=== PATIENT | male | born 1970 | race Asian ===

== ENCOUNTER 2024-06-05 16:50 | Inpatient (IN) | payer OTHER ==
[~2024-06-05] VITALS: Ht 172.7 cm; Wt 84.3 kg
[2024-06-05 17:39] VITALS: PULSE 89; RESP 18; O2SAT 97
--- NOTE | 2024-06-05 17:47 | ED.PDOC ---
GI ASSESSMENT HPI Comments 53 y/o M, presents to the ED for CC abdominal pain. Patient states, he has been experiencing abdominal pain with associated symptoms of nausea and vomiting x1day. Patient currently complains, of 8/10 abdominal pain. Patient denies social history. Patient denies fever, chills, body-aches, or diarrhea. No other symptoms or modifying factors at this time. Time Seen by MD: 17:40 Reviewed Notes: Nurses Notes, Medications, Allergies Allergies: Coded Allergies: NO KNOWN ALLERGIES (Unverified , 06/05/24) Information Source: Patient, Friend Mode of Arrival: Ambulatory Timing: Days Duration: Since onset Prehospital treatment: None Quality: None Vomitus: Watery Severity: Mild Recent: None Recent Hx of: Diabetes Pain Location: Diffuse Modifying Factors: Nothing Associated sign and symptoms: Nausea, Vomiting Past Medical History PAST MEDICAL HISTORY: DM, HTN Surgical History: Denies all surgeries Family History Family History: Unknown Social History Smoker: Non-Smoker Alcohol: Denies ETOH Use Drugs: Denies Drug Use Lives In: Home Constitutional: denies: chills, diaphoresis, fatigue, fever, malaise, sweats, weakness, others EENTM: denies: blurred vision, double vision, ear bleeding, ear discharge, ear drainage, ear pain, ear ringing, eye pain, eye redness, hearing loss, mouth pa in, mouth swelling, nasal discharge, nose bleeding, nose congestion, nose pain, photophobia, tearing, throat pain, throat swelling, voice changes, others Respiratory: denies: cough, hemoptysis, orthopnea, SOB at rest, shortness of breath, SOB with excertion, stridor, wheezing, others Cardiovascular: denies: chest pain, dizzy spells, diaphoresis, Dyspnea on exertion, edema, irregular heart beat, left arm pain, lightheadedness, palpitations, PND, syncope, others Gastrointestinal: reports: abdominal pain, nausea, vomiting; denies: abdomen distended, blood streaked bowels, constipated, diarrhea, dysphagia, difficulty swallowing, hematemesis, melena, poor appetite, poor fluid intake, rectal bleeding, rectal pain, others Genitourinary: denies: burning, dysuria, flank pain, frequency, hematuria, incontinence, penile discharge, penile sore, pain, testicle pain, testicle swelling, urgency, others Neurological: denies: dizziness, fainting, headache, left sided numbness, left sided weakness, numbness, paresthesia, pre-existing deficit, right sided numbness, right sided weakness, seizure, speech problems, tingling, tremors, weakness, others Musculoskeletal: denies: back pain, gout, joint pain, joint swelling, muscle pain, muscle stiffness, neck pain, others Integumetry: denies: bruises, change in color, change in hair/nails, dryness, laceration, lesions, lumps, rash, wounds, others Allergic/Immunocompromised: denies: Difficulty Healing, Frequent Infections, Hives, Itching, others Hematologic/Lymphatic: denies: anemia, blood clots, easy bleeding, easy bruising, swollen glands, others Endocrine: denies: excessive hunger, excessive sweating, excessive thirst, excessive urination, flushing, intolerance to cold, intolerance to heat, unexplained weight gain, unexplained weight loss, others Psychiatric: denies: anxiety, bipolar disorder, depression, hopeless, panic disorder, schizophrenia, sleepless, suicidal, others All Other Systems: Reviewed and Negative Physical Exam General Appearance: Moderate Distress HEENT: Normal ENT Inspection, Pharynx Normal, TMs Normal Neck: Full Range of Motion, Non-Tender, Normal, Normal Inspection Respiratory: Chest Non-Tender, Lungs Clear, No Accessory Muscle Use, No Respiratory Distress, Normal Breath Sounds Cardiovascular: No Edema, No JVD, No Murmur, No Gallop, Normal Peripheral Pulses, Regular Rate/Rhythm Breast Exam: Deferred Gastrointestinal: Diffuse, No Organomegaly, No Pulsatile Mass, Normal Bowel Sounds, Soft, Tenderness Genitalia: Deferred Pelvic: Deferred Rectal: Deferred Extremities: No calf tenderness, Normal capillary refill, Normal inspection, Normal range of motion, Non-tender, No pedal edema Musculoskeletal : Apperance: Normal Neurologic: Alert, correspondence specialist II-XII nml as Tested, No Motor Deficits, Normal Affect, Normal Mood, No Sensory Deficits Cerebellar Function: Normal Reflexes: Normal Skin: Dry, Normal Color, Warm Lymphatic: No Adenopathy Was a procedure done? Was a procedure done?: No GI differential Dx Differential Diagnosis: Appendicitis, Gastritis/PUD, Gastroenteritis, Electrolyte Imbalance, Food Poisoning, , Bacterial, Viral X-Ray, Labs, Meds, VS Vital Signs Date Time Temp Pulse Resp B/P (MAP) Pulse Ox O2 Delivery O2 Flow Rate FiO2 06/05/24 17:39 89 18 97 Room Air* 0 21 06/05/24 17:39 98.6 89 18 145/91 (109) 97 98.6 06/05/24 17:39 98.6 89 18 145/91 (109) 97 Lab Test 06/05/24 17:53 06/05/24 17:35 Range/Units White Blood Count 16.8 H 4.4-10.8 10^3/uL Red Blood Count 5.23 4.5-5.90 10^6/uL Hemoglobin 16.0 13.5-17.5 g/dL Hematocrit 48.4 41.0-53.0 % Mean Corpuscular Volume 92.6 80.0-100.0 fL Mean Corpuscular Hemoglobin 30.6 28.0-32.0 pg Mean Corpuscular Hemoglobin Concent 33.1 32.0-36.0 g/dL Red Cell Distribution Width 12.7 11.8-14.3 % Platelet Count 199 140-450 10^3/uL Mean Platelet Volume 8.7 6.9-10.8 fL Neutrophils (%) (Auto) 92.0 H 37.0-80.0 % Lymphocytes (%) (Auto) 5.2 L 10.0-50.0 % Monocytes (%) (Auto) 2.6 0.0-12.0 % Eosinophils (%) (Auto) 0.0 0.0-7.0 % Basophils (%) (Auto) 0.2 0.0-2.0 % Neutrophils # (Auto) 15.5 H 1.6-8.6 10 ^3/uL Lymphocytes # (Auto) 0.9 0.4-5.4 10 ^3/uL Monocytes # (Auto) 0.4 0-1.3 10 ^3/uL Eosinophils # (Auto) 0 0-0.8 10 ^3/uL Basophils # (Auto) 0 0-0.2 10 ^3/uL Nucleated Red Blood Cells 0.1 % Prothrombin Time Pending Prothrombin Time INR Pending Activated Partial Thromboplast Time Pending Sodium Level Pending Potassium Level Pending Chloride Level Pending Carbon Dioxide Level Pending Anion Gap Pending Blood Urea Nitrogen Pending Creatinine Pending Glomerular Filtration Rate Calc Pending BUN/Creatinine Ratio Pending Serum Glucose Pending Calcium Level Pending Total Bilirubin Pending Aspartate Amino Transferase (AST) Pending Alanine Aminotransferase (ALT) Pending Alkaline Phosphatase Pending Total Protein Pending Albumin Pending Lipase Pending Urine Color Yellow Yellow Urine Clarity Clear Clear Urine pH 5.5 5.0-9.0 Urine Specific [place] 1.031 1.001-1.035 Urine Protein 1+ H Negative Urine Ketones 1+ H Negative Urine Blood Negative Negative /uL Urine Nitrite Negative Negative Urine Bilirubin Negative Negative Urine Urobilinogen Normal Negative mg/dL Urine Leukocyte Esterase Negative Negative /uL Urine RBC <1 0 - 3 /hpf Urine Microscopic WBC < 1 0-3 /HPF Urine Squamous Epithelial Cells None seen <5 /hpf Urine Bacteria None seen None Seen /hpf Urine Mucus Few None Seen Urine Glucose 3+ H Normal mg/dL IV Hep-Lock was established The patient was given a 1 L bolus of normal saline The urine test is negative The patient's CBC shows an elevated white blood cell count of 16.8 The rest of the CBC is within normal limits The patient had a CT scan done of the abdomen and pelvis which shows: 1. 10 mm appendix with calcified appendicoliths and periappendiceal stranding. Correlate with clinical setting. (series 2 images 54- 59 2. Clinically for possible appendicitis. 3. No calcified gallstones 4. No nephrolithiasis or hydronephrosis. 5. No CT findings of bowel obstruction. We are contacting the general surgeon for acute appendicitis The patient was started Zosyn IV piggyback The patient was being typed and screened We did discuss the findings with the patient and he is in agreement with the management The patient was being admitted at this time Images Reviewed?: Images reviewed and evaluated by me Time of 1ST Reevaluation: 18:20 Reevaluation 1ST: Unchanged Patient Education/Counseling: Diagnosis, Treatment, Prognosis Family Education/Counseling: No Family Present Additional Information - I reviewed the following notes from patient's past medical encounters: NONE - The following tests were ordered, and results were reviewed by me: CBC, CMP, LIPASE, UA, CT ABD PEL - Additional information was gathered from interviewing the following independent Historian: FAMILY - I reviewed and agreed with the following test results read by other provider: CT ABD PEL - I discussed treatments and results with medical personnel and: FAMILY Departure 1 Departure Time of Disposition: 18:52 Impression: Primary Impression: Acute abdominal pain Additional Impression: Acute appendicitis Qualified Codes: K35.30 - Acute appendicitis with localized peritonitis, without perforation or gangrene Disposition: ADMITTED INPATIENT Admit to: Med Surg Condition: Fair Critical Care Note Critical Care Time?: No Stability Stability form required: No Heart Score Heart Score: Heart Score Response (Comments) Value History N/A 0 EKG N/A 0 Age N/A 0 Risk Factors N/A 0 Troponin N/A 0 Total 0 I personally scribed for LISA HITCHCOCK MD ([email or web address]) on 06/05/24 at 17:47. Electronically submitted by Marisela Ruiz ([email or web address]). I personally scribed for LISA HITCHCOCK MD ([email or web address]) on 06/05/24 at 17:54. Electronically submitted by Marisela Ruiz ([email or web address]). LISA HITCHCOCK MD Jun 05, 2024 17:47
[2024-06-05 18:21] LABS: Urine Bacteria None Seen /hpf (None Seen)
[2024-06-05 18:33] LABS: Basophils # (auto) 0 10 ^3/uL (0-0.2); Basophils % (auto) 0.2 % (0.0-2.0); Eosinophils # (auto) 0 10 ^3/uL (0-0.8); Hematocrit 48.4 % (41.0-53.0); Lymphocytes # (auto) 0.9 10 ^3/uL (0.4-5.4); Lymphocytes % (auto) 5.2 % (10.0-50.0); Mean Corpuscular Hemoglobin 30.6 pg (28.0-32.0); Mean Corpuscular Hgb Conc. 33.1 g/dL (32.0-36.0); Mean Corpuscular Volume 92.6 fL (80.0-100.0); Monocytes # (auto) 0.4 10 ^3/uL (0-1.3); Monocytes % (auto) 2.6 % (0.0-12.0); Neutrophils # (auto) 15.5 10 ^3/uL (1.6-8.6); Nucleated Red Blood Cells % 0.1 %; Platelet Count (auto) 199 10^3/uL (140-450); Red Blood Cells 5.23 10^6/uL (4.5-5.90); Red Cell Distribution Width 12.7 % (11.8-14.3); White Blood Cell 16.8 10^3/uL (4.4-10.8)
[2024-06-05 18:35] LABS: Urine Blood Negative /uL (Negative); Urine Clarity Clear (Clear); Urine Color Yellow (Yellow); Urine Mucus FEW (None Seen); Urine Protein, UAD 1+ (Negative); Urine Specific Gravity 1.031 (1.001-1.035); Urine Squamous Epithelial Cell None Seen /hpf (<5); Urine Urobilinogen Normal (Negative); Urine WBC < 1 /HPF (0-3); Urine pH 5.5 (5.0-9.0)
--- NOTE | 2024-06-05 18:39 | DVH ---
Exam: CT CT AB PEL WO CON-NO ORAL OR IV History: pain Comparison Study: None available at time of dictation. TECHNIQUE: Multidetector CT of the abdomen was performed from lung bases to pubic symphysis. Imaging was performed without IV contrast. Axial, coronal and sagittal multiplanar reformats were obtained fr om the axial data set by the technologist. Radiation Dose Information: CT Dose: CTDI volume is 11.04 mGy. Dose-length product is 606.1 mGy*cm FINDINGS: Evaluation of solid organs is limited due to lack of intravenous contrast use. Findings: Lung Bases: No acute or significant lung base finding. Normal heart size. No pleural or pericardial effusion. Liver: The liver is normal in size. No focal lesions. Hepatic steatosis Gallbladder and Biliary Tree: Unremarkable Spleen: Unremarkable Pancreas: The pancreas is grossly normal in appearance. Adrenal Glands: Unremarkable Kidneys: Kidneys are grossly normal without calculi or hydronephrosis. Bladder: Grossly unremarkable for degree of distention. Bowel: The stomach is grossly normal in appearance. Small bowel and colon are normal in caliber and d istribution. The appendix is prominent measuring periappendiceal stranding and a calcified appendico lith. Correlate clinically for possible appendicitis. Ascites: Absent Lymphadenopathy: No mesenteric, retroperitoneal or periportal lymphadenopathy. Abdominal Wall and Mesentery: Unremarkable. Vasculature: The visualized abdominal aorta is normal in size and caliber. Evaluation of abdominal a nd pelvic vessels is limited due to lack of intravenous contrast. Pelvic Organs: Unremarkable Musculoskeletal: No aggressive focal bony lesions, acute fractures or dislocation. Soft tissues: Unremarkable IMPRESSION: 1. 10 mm appendix with calcified appendicoliths and periappendiceal stranding. Correlate with clinic al setting. (series 2 images 54- 59 2. Clinically for possible appendicitis. 3. No calcified gallstones 4. No nephrolithiasis or hydronephrosis. 5. No CT findings of bowel obstruction. CRITICAL FINDINGS Critical Result: POSSIBLE APPENDICITIS Findings discussed with LISA Mendenhall at 06/05/2024 06:29 PM, and acknowledged receipt and underst anding of the findings. HS:[place] .. Radiation optimization: All CT scans at this facility use at least one of these dose optimization raymond hniques: automated exposure control mA and/or kV adjustment per patient size (includes targeted exam s where dose is matched to clinical indication) or iterative reconstruction.
[2024-06-05 18:52] LABS: Alanine Aminotransferase 33 U/L (7-40); Alkaline Phosphatase 67 U/L (46-116); Anion Gap 8 (5-15); Aspartate Aminotransferase 22 U/L (13-40); BUN/Creatinine Ratio 18.4 (10.0-20.0); Blood Urea Nitrogen 14 mg/dL (9-23); Calcium 9.9 mg/dL (8.7-10.4); Carbon Dioxide 26 mmol/L (20-31); Chloride 103 mmol/L (98-107); Lipase 51 U/L (12-53); Potassium 3.8 mmol/L (3.5-5.1); Sodium 137 mmol/L (136-145)
[2024-06-05 18:53] LABS: Albumin 4.9 g/dL (3.2-4.8); Bilirubin, Total 0.6 mg/dL (0.2-1.0); Glucose 158 mg/dL (74-106); Total Protein 7.7 g/dL (5.7-8.2)
[2024-06-05 18:58] LABS: INR 1.04 (0.9-1.15); Partial Thromboplastin Time 27.3 SEC (24.5-34.5)
[2024-06-05] MEDS: SODIUM CHLORIDE 0.9% 1,000 ML IVB ONE (19:00)
[2024-06-05] MEDS ORDERED: ONDANSETRON HCL 4 MG/2 ML VIAL IV PRN (19:45)
--- NOTE | 2024-06-05 19:59 | DVHINCON2 ---
Consultation - Surgical Date Seen: Jun 05, 2024 Referring Physician Referring Physician monica Reason for Consultation Abdominal pain History of Present Illness History of Present Illness 53 y/o M, presents to the ED for CC abdominal pain. Patient states, he has been experiencing abdominal pain with associated symptoms of nausea and vomiting x1day. Patient currently complains, of 8/10 abdominal pain. Patient denies social history. Patient denies fever, chills, body-aches, or diarrhea. No other symptoms or modifying factors at this time. Past Medical/Surgical History Past Medical/Surgical History Hypertension and diabetes Family and Social History Family and Social History Nonsmoker nondrinker Allergies and medications Allergies: Coded Allergies: NO KNOWN ALLERGIES (Unverified , 06/05/24) Review of systems Review of Systems: HEENT:Normal, CVS:Normal Examination Vital signs Vital Signs Date Time Temp Pulse Resp B/P (MAP) Pulse Ox O2 Delivery O2 Flow Rate FiO2 06/05/24 17:39 89 18 97 Room Air* 0 21 06/05/24 17:39 98.6 145/91 (109) 98.6 Laboratory Labs Test 06/05/24 17:53 06/05/24 17:35 Range/Units White Blood Count 16.8 H 4.4-10.8 10^3/uL Red Blood Count 5.23 4.5-5.90 10^6/uL Hemoglobin 16.0 13.5-17.5 g/dL Hematocrit 48.4 41.0-53.0 % Mean Corpuscular Volume 92.6 80.0-100.0 fL Mean Corpuscular Hemoglobin 30.6 28.0-32.0 pg Mean Corpuscular Hemoglobin Concent 33.1 32.0-36.0 g/dL Red Cell Distribution Width 12.7 11.8-14.3 % Platelet Count 199 140-450 10^3/uL Mean Platelet Volume 8.7 6.9-10.8 fL Neutrophils (%) (Auto) 92.0 H 37.0-80.0 % Lymphocytes (%) (Auto) 5.2 L 10.0-50.0 % Monocytes (%) (Auto) 2.6 0.0-12.0 % Eosinophils (%) (Auto) 0.0 0.0-7.0 % Basophils (%) (Auto) 0.2 0.0-2.0 % Neutrophils # (Auto) 15.5 H 1.6-8.6 10 ^3/uL Lymphocytes # (Auto) 0.9 0.4-5.4 10 ^3/uL Monocytes # (Auto) 0.4 0-1.3 10 ^3/uL Eosinophils # (Auto) 0 0-0.8 10 ^3/uL Basophils # (Auto) 0 0-0.2 10 ^3/uL Nucleated Red Blood Cells 0.1 % Prothrombin Time 11.0 9.3-11.8 sec Prothrombin Time INR 1.04 0.9-1.15 Activated Partial Thromboplast Time 27.3 24.5-34.5 SEC Sodium Level 137 136-145 mmol/L Potassium Level 3.8 3.5-5.1 mmol/L Chloride Level 103 98-107 mmol/L Carbon Dioxide Level 26 20-31 mmol/L Anion Gap 8 5-15 Blood Urea Nitrogen 14 9-23 mg/dL Creatinine 0.76 0.700-1.30 mg/dL Glomerular Filtration Rate Calc 108 >90 mL/min BUN/Creatinine Ratio 18.4 10.0-20.0 Serum Glucose 158 H 74-106 mg/dL Calcium Level 9.9 8.7-10.4 mg/dL Total Bilirubin 0.6 0.2-1.0 mg/dL Aspartate Amino Transferase (AST) 22 13-40 U/L Alanine Aminotransferase (ALT) 33 7-40 U/L Alkaline Phosphatase 67 46-116 U/L Total Protein 7.7 5.7-8.2 g/dL Albumin 4.9 H 3.2-4.8 g/dL Lipase 51 12-53 U/L Urine Color Yellow Yellow Urine Clarity Clear Clear Urine pH 5.5 5.0-9.0 Urine Specific [place] 1.031 1.001-1.035 Urine Protein 1+ H Negative Urine Ketones 1+ H Negative Urine Blood Negative Negative /uL Urine Nitrite Negative Negative Urine Bilirubin Negative Negative Urine Urobilinogen Normal Negative mg/dL Urine Leukocyte Esterase Negative Negative /uL Urine RBC <1 0 - 3 /hpf Urine Microscopic WBC < 1 0-3 /HPF Urine Squamous Epithelial Cells None seen <5 /hpf Urine Bacteria None seen None Seen /hpf Urine Mucus Few None Seen Urine Glucose 3+ H Normal mg/dL Exam: CT CT AB PEL WO CON-NO ORAL OR IV History: pain Comparison Study: None available at time of dictation. TECHNIQUE: Multidetector CT of the abdomen was performed from lung bases to pubic symphysis. Imaging was performed without IV contrast. Axial, coronal and sagittal multiplanar reformats were obtained from the axial data set by the technologist. Radiation Dose Information: CT Dose: CTDI volume is 11.04 mGy. Dose-length product is 606.1 mGy*cm FINDINGS: Evaluation of solid organs is limited due to lack of intravenous contrast use. Findings: Lung Bases: No acute or significant lung base finding. Normal heart size. No pleural or pericardial effusion. Liver: The liver is normal in size. No focal lesions. Hepatic steatosis Gallbladder and Biliary Tree: Unremarkable Spleen: Unremarkable Pancreas: The pancreas is grossly normal in appearance. Adrenal Glands: Unremarkable Kidneys: Kidneys are grossly normal without calculi or hydronephrosis. Bladder: Grossly unremarkable for degree of distention. Bowel: The stomach is grossly normal in appearance. Small bowel and colon are normal in caliber and distribution. The appendix is prominent measuring periappendiceal stranding and a calcified appendicolith. Correlate clinically for possible appendicitis. Ascites: Absent Lymphadenopathy: No mesenteric, retroperitoneal or periportal lymphadenopathy. Abdominal Wall and Mesentery: Unremarkable. Vasculature: The visualized abdominal aorta is normal in size and caliber. Evaluation of abdominal and pelvic vessels is limited due to lack of intravenous contrast. Pelvic Organs: Unremarkable Musculoskeletal: No aggressive focal bony lesions, acute fractures or dislocation. Soft tissues: Unremarkable IMPRESSION: 1. 10 mm appendix with calcified appendicoliths and periappendiceal stranding. Correlate with clinical setting. (series 2 images 54- 59 2. Clinically for possible appendicitis. 3. No calcified gallstones 4. No nephrolithiasis or hydronephrosis. 5. No CT findings of bowel obstruction. CRITICAL FINDINGS Critical Result: POSSIBLE APPENDICITIS Examination: ABDOMEN:Abnormal (Abdominal pain tenderness generalized with increased intensity no rebound guarding CVA) Problem List/Assessment/Plan Problems: (1) Acute appendicitis (2) Acute abdominal pain Assessment and Plan 53-year-old male with appendicitis We will admit IV hydration, IV antibiotics, NPO, laparoscopic possible open appendectomy in the morning. Case discussed with Dr. Patrick Plan discussed with Plan discussed with: Patient, Other Visit Coding Surgery Date of Service if different f: Jun 05, 2024 Billing Provider: DAYANARA VERNON Jr., MD Surgery Visit Codes: 34289 - INP CONSULT <80 MIN DAYANARA VERNON Jr., MD Jun 05, 2024 19:59
--- NOTE | 2024-06-05 20:20 | DVH ---
CHEST RADIOGRAPH Indication: preop, pain Technique: Single frontal view of the chest was obtained Comparison: None FINDINGS: Lines and Tubes: None Lungs: No focal consolidation. Pleura: No effusion. No pneumothorax. Cardiomediastinal contours: Unremarkable Bones: No acute osseous abnormality. IMPRESSION: No acute cardiopulmonary disease.
[2024-06-05] MEDS: MORPHINE SULFATE 4 MG/ML SYR/VIAL IV ONE (21:48)
[2024-06-05] MEDS: ONDANSETRON HCL 4 MG/2 ML VIAL IV ONE (21:49)
[2024-06-05] MEDS: PIPERACILLIN-TAZOB 3.375GM 100 ML IV ONE (21:59)
[2024-06-05] MEDS: SODIUM CHLORIDE 0.9% 1,000 ML IV ONE (22:15)
[2024-06-05 23:35] VITALS: BP 142/81; PULSE 70; RESP 20; TEMP 98.3; O2SAT 95
[2024-06-06] VITALS (9 sets, daily range): BP systolic 112–142; BP diastolic 60–83; PULSE 70–109; RESP 10–20; TEMP 98.1–101.7; O2SAT 91–100
[2024-06-06] MEDS: PIPERACILLIN-TAZOB 3.375GM 100 ML IV SCH ×2 (01:21→21:29)
--- NOTE | 2024-06-06 03:58 | DVHHP2 ---
History of Present Illness Reason for Visit: Abdominal pain History of Present Illness 53-year-old male presents for evaluation of abdominal pain. Patient endorses a one day history of sharp abdominal pain associated nausea and vomiting. Patient also reports intermittent chills. Patient currently endorses a 6/10 pain level. No cardiac or respiratory complaints. Past Medical History Hypertension diabetes mellitus Past Surgical History Denies Family History Noncontributory Smoke: No ALCOHOL: none Drugs: None Lives: with Family Review of Systems Review of Systems Review of systems are currently negative otherwise addressed in HPI. Allergies: Coded Allergies: NO KNOWN ALLERGIES (Unverified , 06/05/24) Medications Current Medications Medications Dose Ordered Sig/Salvador Route Start Time Stop Time Status Last Admin Dose Admin Piperacillin Sod/ Tazobactam Sod 100 ml @ 25 mls/hr Q6HR IV 06/06/24 00:00 06/06/24 01:21 25 MLS/HR Ondansetron HCl 4 mg Q4HP PRN IV 06/05/24 19:45 Morphine Sulfate 2 mg Q4HPRN PRN IV 06/05/24 19:45 Exam Vital Signs Vital Signs Date Time Temp Pulse Resp B/P (MAP) Pulse Ox O2 Delivery O2 Flow Rate FiO2 06/06/24 00:00 98.3 70 20 142/81 (101) 95 98.3 06/06/24 00:00 Room Air* 0 21 Exam Gen: 53-year-old male in mild distress Skin: Warm, dry, normal color and texture, no rash. HEENT: Normocephalic atraumatic, mucous membranes moist and pink. Neck: Cervical and supraclavicular nodes normal without enlargement, trachea is midline, thyroid gland is normal without masses. Pulmonary: Clear to auscultation and percussion bilaterally. Cardiac: Regular rate and rhythm. No murmur Abdomen: Soft, mid abdominal tenderness radiating to right lower quadrant, nondistended, bowel sounds present all 4 quadrants, no guarding, no rigidity, no organomegaly. Extremities: No cyanosis, clubbing, no edema Neuro: Cranial nerves II through XII grossly intact, normal affect and speech, no focal motor deficits. Labs/Xrays ORDERING PHYSICIAN: RODRÍGUEZ RODRÍGUEZ PROCEDURE(s): CXR1 - CHEST XRAY 1 VIEW REASON: preop ORDER NUMBER(s): [id number], ACCESSION NUMBER(s): [id number] CHEST RADIOGRAPH Indication: preop, pain Technique: Single frontal view of the chest was obtained Comparison: None FINDINGS: Lines and Tubes: None Lungs: No focal consolidation. Pleura: No effusion. No pneumothorax. Cardiomediastinal contours: Unremarkable Bones: No acute osseous abnormality. IMPRESSION: No acute cardiopulmonary disease. RING PHYSICIAN: LISA HITCHCOCK MD PROCEDURE(s): ABPL - CT AB PEL WO CON-NO ORAL OR IV REASON: pain ORDER NUMBER(s): [id number], ACCESSION NUMBER(s): [id number] Exam: CT CT AB PEL WO CON-NO ORAL OR IV History: pain Comparison Study: None available at time of dictation. TECHNIQUE: Multidetector CT of the abdomen was performed from lung bases to pubic symphysis. Imaging was performed without IV contrast. Axial, coronal and sagittal multiplanar reformats were obtained from the axial data set by the technologist. Radiation Dose Information: CT Dose: CTDI volume is 11.04 mGy. Dose-length product is 606.1 mGy*cm FINDINGS: Evaluation of solid organs is limited due to lack of intravenous contrast use. Findings: Lung Bases: No acute or significant lung base finding. Normal heart size. No pleural or pericardial effusion. Liver: The liver is normal in size. No focal lesions. Hepatic steatosis Gallbladder and Biliary Tree: Unremarkable Spleen: Unremarkable Pancreas: The pancreas is grossly normal in appearance. Adrenal Glands: Unremarkable Kidneys: Kidneys are grossly normal without calculi or hydronephrosis. Bladder: Grossly unremarkable for degree of distention. Bowel: The stomach is grossly normal in appearance. Small bowel and colon are normal in caliber and distribution. The appendix is prominent measuring periappendiceal stranding and a calcified appendicolith. Correlate clinically for possible appendicitis. Ascites: Absent Lymphadenopathy: No mesenteric, retroperitoneal or periportal lymphadenopathy. Abdominal Wall and Mesentery: Unremarkable. Vasculature: The visualized abdominal aorta is normal in size and caliber. Evaluation of abdominal and pelvic vessels is limited due to lack of intravenous contrast. Pelvic Organs: Unremarkable Musculoskeletal: No aggressive focal bony lesions, acute fractures or dislocation. Soft tissues: Unremarkable IMPRESSION: 1. 10 mm appendix with calcified appendicoliths and periappendiceal stranding. Correlate with clinical setting. (series 2 images 54- 59 2. Clinically for possible appendicitis. 3. No calcified gallstones 4. No nephrolithiasis or hydronephrosis. 5. No CT findings of bowel obstruction. CRITICAL FINDINGS Critical Result: POSSIBLE APPENDICITIS Findings discussed with LISA Mendenhall at 06/05/2024 06:29 PM, and acknowledged receipt and understanding of the findings. HS:Y .. Radiation optimization: All CT scans at this facility use at least one of these dose optimization techniques: automated exposure control mA and/or kV adjustment per patient size (includes targeted exams where dose is matched to clinical indication) or iterative reconstruction. Labs Test 06/05/24 17:53 06/05/24 17:35 Range/Units White Blood Count 16.8 H 4.4-10.8 10^3/uL Red Blood Count 5.23 4.5-5.90 10^6/uL Hemoglobin 16.0 13.5-17.5 g/dL Hematocrit 48.4 41.0-53.0 % Mean Corpuscular Volume 92.6 80.0-100.0 fL Mean Corpuscular Hemoglobin 30.6 28.0-32.0 pg Mean Corpuscular Hemoglobin Concent 33.1 32.0-36.0 g/dL Red Cell Distribution Width 12.7 11.8-14.3 % Platelet Count 199 140-450 10^3/uL Mean Platelet Volume 8.7 6.9-10.8 fL Neutrophils (%) (Auto) 92.0 H 37.0-80.0 % Lymphocytes (%) (Auto) 5.2 L 10.0-50.0 % Monocytes (%) (Auto) 2.6 0.0-12.0 % Eosinophils (%) (Auto) 0.0 0.0-7.0 % Basophils (%) (Auto) 0.2 0.0-2.0 % Neutrophils # (Auto) 15.5 H 1.6-8.6 10 ^3/uL Lymphocytes # (Auto) 0.9 0.4-5.4 10 ^3/uL Monocytes # (Auto) 0.4 0-1.3 10 ^3/uL Eosinophils # (Auto) 0 0-0.8 10 ^3/uL Basophils # (Auto) 0 0-0.2 10 ^3/uL Nucleated Red Blood Cells 0.1 % Prothrombin Time 11.0 9.3-11.8 sec Prothrombin Time INR 1.04 0.9-1.15 Activated Partial Thromboplast Time 27.3 24.5-34.5 SEC Sodium Level 137 136-145 mmol/L Potassium Level 3.8 3.5-5.1 mmol/L Chloride Level 103 98-107 mmol/L Carbon Dioxide Level 26 20-31 mmol/L Anion Gap 8 5-15 Blood Urea Nitrogen 14 9-23 mg/dL Creatinine 0.76 0.700-1.30 mg/dL Glomerular Filtration Rate Calc 108 >90 mL/min BUN/Creatinine Ratio 18.4 10.0-20.0 Serum Glucose 158 H 74-106 mg/dL Calcium Level 9.9 8.7-10.4 mg/dL Total Bilirubin 0.6 0.2-1.0 mg/dL Aspartate Amino Transferase (AST) 22 13-40 U/L Alanine Aminotransferase (ALT) 33 7-40 U/L Alkaline Phosphatase 67 46-116 U/L Total Protein 7.7 5.7-8.2 g/dL Albumin 4.9 H 3.2-4.8 g/dL Lipase 51 12-53 U/L Urine Color Yellow Yellow Urine Clarity Clear Clear Urine pH 5.5 5.0-9.0 Urine Specific [place] 1.031 1.001-1.035 Urine Protein 1+ H Negative Urine Ketones 1+ H Negative Urine Blood Negative Negative /uL Urine Nitrite Negative Negative Urine Bilirubin Negative Negative Urine Urobilinogen Normal Negative mg/dL Urine Leukocyte Esterase Negative Negative /uL Urine RBC <1 0 - 3 /hpf Urine Microscopic WBC < 1 0-3 /HPF Urine Squamous Epithelial Cells None seen <5 /hpf Urine Bacteria None seen None Seen /hpf Urine Mucus Few None Seen Urine Glucose 3+ H Normal mg/dL Assessment/Plan Assessment/Plan Assessment Acute abdominal pain Acute appendicitis Leukocytosis Plan Admit the patient to [facility] to the hospitalist Surgical consultation Zosyn NPO Maintenance IV fluids Pain management Continue treatment per orders. Plan discussed with: Patient My Orders Orders - RODRÍGUEZ RODRÍGUEZCNOmar Procedure Category Date Status Time Ekg On Admit ABNER 06/05/24 In Process 19:45 Piperacillin-Tazob PHA 06/06/24 In Process 3.375gm (Zosyn 3.375g 00:00 Sodium Chloride 0.9% PHA 06/05/24 In Process 19:45 Admit ADMIT 06/05/24 Transmitted 19:45 Ondansetron Hcl PHA 06/05/24 In Process (Zofran) 19:45 Complete Blood Count LAB 06/06/24 Logged 04:00 Comprehensive LAB 06/06/24 Logged Metabolic Panel 04:00 Condition: Stable ABNER 06/05/24 In Process 19:45 Bedrest With Bathroom ABNER 06/05/24 In Process Privileg 19:45 Morphine Sulfate PHA 06/05/24 In Process Injection 19:45 Chest Xray 1 View XY 06/05/24 Resulted 19:50 Date of Service: Jun 05, 2024 Billing Provider: RODRÍGUEZ RODRÍGUEZ Common Visit Codes: [id number] INP/OBS CARE (HIGH) RODRÍGUEZ RODRÍGUEZ Jun 06, 2024 03:58
[2024-06-06 08:29] LABS: Basophils # (auto) 0 10 ^3/uL (0-0.2); Basophils % (auto) 0.1 % (0.0-2.0); Eosinophils # (auto) 0 10 ^3/uL (0-0.8); Hematocrit 45.5 % (41.0-53.0); Hemoglobin 14.9 g/dL (13.5-17.5); Lymphocytes # (auto) 0.9 10 ^3/uL (0.4-5.4); Lymphocytes % (auto) 5.5 % (10.0-50.0); Mean Corpuscular Hemoglobin 30.1 pg (28.0-32.0); Mean Corpuscular Hgb Conc. 32.8 g/dL (32.0-36.0); Monocytes # (auto) 1.1 10 ^3/uL (0-1.3); Monocytes % (auto) 6.4 % (0.0-12.0); Neutrophils # (auto) 14.9 10 ^3/uL (1.6-8.6); Platelet Count (auto) 181 10^3/uL (140-450); Red Blood Cells 4.94 10^6/uL (4.5-5.90); Red Cell Distribution Width 12.9 % (11.8-14.3); White Blood Cell 16.9 10^3/uL (4.4-10.8)
[2024-06-06 09:19] LABS: Carbon Dioxide 26 mmol/L (20-31)
[2024-06-06 09:20] LABS: Calcium 9.1 mg/dL (8.7-10.4)
[2024-06-06 09:23] LABS: Anion Gap 9 (5-15); Chloride 105 mmol/L (98-107); Potassium 3.3 mmol/L (3.5-5.1); Sodium 140 mmol/L (136-145)
[2024-06-06 09:24] LABS: Alkaline Phosphatase 57 U/L (46-116)
[2024-06-06 09:25] LABS: Alanine Aminotransferase 23 U/L (7-40); BUN/Creatinine Ratio 13.5 (10.0-20.0); Blood Urea Nitrogen 12 mg/dL (9-23)
[2024-06-06 09:27] LABS: Albumin 4.2 g/dL (3.2-4.8); Aspartate Aminotransferase 17 U/L (13-40); Total Protein 6.6 g/dL (5.7-8.2)
[2024-06-06 09:29] LABS: Bilirubin, Total 1.3 mg/dL (0.2-1.0); Glucose 146 mg/dL (74-106)
[2024-06-06] MEDS ORDERED: HYDROmorphone HCL 2 MG/ML VL/or syr IV PRN ×2 (10:45)
[2024-06-06] MEDS ORDERED: MORPHINE SULFATE INJ 2 MG/ml SYRG IV PRN (10:45)
[2024-06-06] MEDS: KETOROLAC TROMETH 30 MG/ML 1ML VIAL IV ONE (10:45)
[2024-06-06] MEDS: METOCLOPRAMIDE HCL 5MG/ml INJ 2ml VIAL IV ONE (10:45)
[2024-06-06] MEDS: ACCU-CHEK COMFORT CURVE STRIP VI ONE (10:45)
[2024-06-06] MEDS ORDERED: MEPERIDINE HCL (25 MG/ML) 1ML VIAL ONE (10:56)
[2024-06-06] MEDS ORDERED: fentaNYL CITRATE 100 MCG/2 ML VL ONE (10:56)
[2024-06-06] MEDS ORDERED: KETAMINE 50mg/ML 1ml syringe ONE (10:56)
[2024-06-06] MEDS ORDERED: LIDOCAINE 1% INJ PF 5ML AMP ONE (10:57)
[2024-06-06] MEDS ORDERED: GLYCOPYRROLATE 0.2 MG/ML 1ML VIAL ONE (10:57)
[2024-06-06] MEDS ORDERED: MIDAZOLAM HCL 2MG/2ML 2ml VIAL (1mg/ml) ONE (10:57)
[2024-06-06] MEDS ORDERED: NEOSTIGMINE 1 MG/ML INJ (10mg/10ML VIAL) ONE (10:57)
[2024-06-06] MEDS ORDERED: SODIUM CHLORIDE LOCK 10 ML ONE (10:57)
[2024-06-06] MEDS ORDERED: ONDANSETRON HCL 4 MG/2 ML VIAL ONE (10:57)
[2024-06-06] MEDS ORDERED: LIDOCAINE HCL 2% TOP JELLY 5ML TOP ONE (10:57)
[2024-06-06] MEDS ORDERED: ROCURONIUM 10MG/ML 10ML VIAL IV ONE (10:57)
[2024-06-06] MEDS: LIDOCAINE W/ EPINEPHRINE 1% 20ML VIAL ONE (11:56)
[2024-06-06] MEDS: BUPIVACAINE 0.5% MPF INJ 30ML SDV IJ ONE (11:56)
--- NOTE | 2024-06-06 12:35 | DVHOP ---
DATE OF SURGERY: 06/06/2024 PREOPERATIVE DIAGNOSIS: Acute suppurative appendicitis. POSTOPERATIVE DIAGNOSIS: Acute suppurative appendicitis. SURGEON: Nickolas Patrick MD TACTICAL RESPONSE GROUP OFFICER: Ramon To. ANESTHESIA: General endotracheal. ANESTHESIOLOGIST: Dr. De Oliveira. PROCEDURE: Laparoscopy, laparoscopic appendectomy. DESCRIPTION OF PROCEDURE: Under general endotracheal anesthesia, with the patient's skin prepped and draped, a supraumbilical incision was made and Veress needle inserted into the peritoneal cavity by the hanging drop technique in order to establish pneumoperitoneum to 15 mmHg pressure by insufflation with carbon dioxide. With the abdomen fully distended, the needle was removed and replaced with a 5 mm trocar port through which a 0-degree viewing laparoscope was inserted and under direct vision, 5 and 10 mm ports inserted through the midline abdominal wall. Laparoscopy revealed a raging appendicitis with patchy areas of necrosis of the appendix. The appendix was retrocecal. It was mobilized, lysis of adhesions accomplished in order to bring the appendix to the antececal position. The appendix was then placed on tension utilizing a [place] endoscopic instrument and the appendix was traced to its confluence with the cecum at its base. The appendix was transected with an Endo-LOVELY stapler equipped with vascular ze. The specimen was placed into the specimen extraction bag and removed from the peritoneal cavity through the midline infraumbilical 10 mm port site. Subsequently, the right lower quadrant was profusely irrigated, irrigant was aspirated. Hemostasis was meticulously inspected and found to be complete. At the termination of procedure, there was no evidence of bleeding from either the port sites or from the appendicectomy site. The right lower quadrant was further irrigated, irrigant was aspirated. Following assurance of complete hemostasis, the instrumentation was withdrawn. Pneumoperitoneum was evacuated. Fascial defect closed using 0 Vicryl. Wounds approximated using Monocryl sutures, Dermabond glue and Steri-Strips. The patient remained hemodynamically stable throughout the procedure, left the operating room following an accurate needle and sponge count. There were no family members in the waiting room. Nickolas Patrick MD PF/HUS TID: [id number] RECEIPT: [id number]
[2024-06-06] MEDS ORDERED: MORPHINE SULFATE 4 MG/ML SYR/VIAL IV PRN (12:47)
--- NOTE | 2024-06-06 14:46 | DVHPN2 ---
Reviewed: Care Plan, H&P, Labs, Medications, Previous Orders, Radiology Changes from previous H/P or p: No Changes Objective Vitals Vital Signs Date Time Temp Pulse Resp B/P (MAP) Pulse Ox O2 Delivery O2 Flow Rate FiO2 06/06/24 13:03 81 18 131/85 (100) 98 06/06/24 13:00 98.2 98.2 06/06/24 12:18 Room Air 0 100 Intake/Output Intake and Output 06/06/24 07:00 Intake Total 1100 ml Balance 1100 ml Intake Oral 0 ml IV Total 1100 ml Medications Current Medications Medications Dose Ordered Sig/Salvador Route Start Time Stop Time Status Last Admin Dose Admin Piperacillin Sod/ Tazobactam Sod 100 ml @ 25 mls/hr Q6HR IV 06/06/24 00:00 06/06/24 13:54 25 MLS/HR Ondansetron HCl 4 mg Q4HP PRN IV 06/05/24 19:45 Morphine Sulfate 2 mg Q4HPRN PRN IV 06/05/24 19:45 Hydromorphone HCl 0.5 mg Q10M PRN IV 06/06/24 10:45 06/06/24 15:00 Morphine Sulfate 2 mg Q4H PRN IV 06/06/24 12:47 06/06/24 16:48 Hydromorphone HCl 0.25 mg Q10M PRN IV 06/06/24 10:45 06/06/24 15:00 Potassium Chloride/Dextrose/ Sod Cl 1,000 ml @ 120 mls/hr Q8H20M IV 06/06/24 12:00 UNV Laboratory Results Laboratory Tests 06/06/24 07:51 Chemistry Test 06/05/24 17:53 06/06/24 07:51 Albumin 4.9 g/dL (3.2-4.8) H 4.2 g/dL (3.2-4.8) Calcium Level 9.9 mg/dL (8.7-10.4) 9.1 mg/dL (8.7-10.4) Total Protein 7.7 g/dL (5.7-8.2) 6.6 g/dL (5.7-8.2) Coagulation Test 06/05/24 17:53 Prothrombin Time 11.0 sec (9.3-11.8) Prothrombin Time INR 1.04 (0.9-1.15) Activated Partial Thromboplast Time 27.3 SEC (24.5-34.5) Lipid panel Test 06/05/24 17:53 Lipase 51 U/L (12-53) LFT Test 06/05/24 17:53 06/06/24 07:51 Alanine Aminotransferase (ALT) 33 U/L (7-40) 23 U/L (7-40) Alkaline Phosphatase 67 U/L (46-116) 57 U/L (46-116) Aspartate Amino Transferase (AST) 22 U/L (13-40) 17 U/L (13-40) Total Bilirubin 0.6 mg/dL (0.2-1.0) 1.3 mg/dL (0.2-1.0) H Urinalysis Test 06/05/24 17:35 Urine Color Yellow (Yellow) Urine Clarity Clear (Clear) Urine pH 5.5 (5.0-9.0) Urine Specific [place] 1.031 (1.001-1.035) Urine Protein 1+ (Negative) H Urine Ketones 1+ (Negative) H Urine Blood Negative /uL (Negative) Urine Nitrite Negative (Negative) Urine Bilirubin Negative (Negative) Urine Urobilinogen Normal mg/dL (Negative) Urine Leukocyte Esterase Negative /uL (Negative) Urine RBC <1 /hpf (0 - 3) Urine Microscopic WBC < 1 /HPF (0-3) Urine Squamous Epithelial Cells None seen /hpf (<5) Urine Bacteria None seen /hpf (None Seen) Urine Mucus Few (None Seen) Urine Glucose 3+ mg/dL (Normal) H Labs and/or images reviewed: Labs reviewed by me, Image(s) reviewed by me Assessment/Plan Assessment/Plan Acute appendicitis status post laparoscopic appendectomy by Dr. Patrick on 06/06/2024 continue Zosyn Hypertension Diabetes Plan discussed with: Patient Date of Service: Jun 06, 2024 Billing Provider: SPRING MIGUEL MD Common Visit Codes: [id number] INP/OBS CARE(HIGH) SPRING MIGUEL MD Jun 06, 2024 14:46
[2024-06-06] MEDS: LACTATED RINGER'S 1,000 ML IV SCH (15:00)
[2024-06-06] MEDS: D5W/SOD CHL 0.45%/KCL 20MEQ 1,000 ML IV SCH (17:57)
[2024-06-06] MEDS: MORPHINE SULFATE INJ 2 MG/ml SYRG IV PRN (21:30)
[2024-06-07] VITALS (7 sets, daily range): BP systolic 112–140; BP diastolic 59–85; PULSE 89–111; RESP 16–20; TEMP 97.6–100.9; O2SAT 90–94
[2024-06-07] MEDS ORDERED: ACETAMINOPHEN 325 MG TAB PO PRN (02:15)
--- NOTE | 2024-06-07 11:29 | DVHPN2 ---
Reviewed: Care Plan, H&P, Labs, Medications, Previous Orders, Radiology Changes from previous H/P or p: No Changes Objective Vitals Vital Signs Date Time Temp Pulse Resp B/P (MAP) Pulse Ox O2 Delivery O2 Flow Rate FiO2 06/07/24 08:35 98.1 111 17 135/76 (95) 92 98.1 06/07/24 08:00 Room Air* 0 21 Intake/Output Intake and Output 06/07/24 07:00 Intake Total 700 ml Balance 700 ml Intake Oral 400 ml IV Total 300 ml # Voids 1 Medications Current Medications Medications Dose Ordered Sig/Salvador Route Start Time Stop Time Status Last Admin Dose Admin Ondansetron HCl 4 mg Q4HP PRN IV 06/05/24 19:45 Morphine Sulfate 2 mg Q4HPRN PRN IV 06/05/24 19:45 06/06/24 21:30 2 MG Potassium Chloride/Dextrose/ Sod Cl 1,000 ml @ 120 mls/hr Q8H20M IV 06/06/24 12:00 06/06/24 17:57 120 MLS/HR Lactated Ringer's 1,000 ml @ 150 mls/hr Q6H40M IV 06/06/24 15:00 Piperacillin Sod/ Tazobactam Sod 100 ml @ 25 mls/hr Q6H IV 06/06/24 21:00 06/07/24 10:05 25 MLS/HR Acetaminophen 650 mg Q6HP PRN PO 06/07/24 02:15 Laboratory Results Laboratory Tests 06/06/24 07:51 Urinalysis Test 06/05/24 17:35 Urine Color Yellow (Yellow) Urine Clarity Clear (Clear) Urine pH 5.5 (5.0-9.0) Urine Specific [place] 1.031 (1.001-1.035) Urine Protein 1+ (Negative) H Urine Ketones 1+ (Negative) H Urine Blood Negative /uL (Negative) Urine Nitrite Negative (Negative) Urine Bilirubin Negative (Negative) Urine Urobilinogen Normal mg/dL (Negative) Urine Leukocyte Esterase Negative /uL (Negative) Urine RBC <1 /hpf (0 - 3) Urine Microscopic WBC < 1 /HPF (0-3) Urine Squamous Epithelial Cells None seen /hpf (<5) Urine Bacteria None seen /hpf (None Seen) Urine Mucus Few (None Seen) Urine Glucose 3+ mg/dL (Normal) H Microbiology Microbiology Date/Time Source Procedure Growth Status 06/06/24 11:50 Peritoneal Fluid Gram Stain Pending Resulted 06/06/24 11:50 Peritoneal Fluid Anaerobic Culture Pending Resulted 06/06/24 11:50 Peritoneal Fluid Aerobic Culture - Preliminary Resulted Labs and/or images reviewed: Labs reviewed by me, Image(s) reviewed by me Assessment/Plan Assessment/Plan Acute appendicitis status post laparoscopic appendectomy by Dr. Patrick on 06/06/2024 continue Zosyn Hypertension Diabetes Examined through the help of [employer] Plan discussed with: Patient My Orders Orders - SPRING MIGUEL MD Procedure Category Date Status Time Lactated Ringer's PHA 06/06/24 In Process 15:00 Date of Service: Jun 07, 2024 Billing Provider: SPRING MIGUEL MD Common Visit Codes: [id number] INP/OBS CARE(HIGH) SPRING MIGUEL MD Jun 07, 2024 11:29
--- NOTE | 2024-06-07 14:33 | DVHPN2 ---
Progress Note Date Seen: Jun 07, 2024 Has the PT tested + for MRSA If YES, has PT been informed?: No Medical Necessity Reason Pt with a Central, PICC or Fol: No Subjective Patient reports: No new complaints, Feels better Review of Systems: HEENT:Normal, CVS:Normal, RESPIRATORY:Normal, GI:Normal, :Normal, MSK:Normal, NEURO:Normal Objective vital signs Vital Sign Date Time Temp Pulse Resp B/P (MAP) Pulse Ox O2 Delivery O2 Flow Rate FiO2 06/07/24 13:00 99.4 89 16 120/70 (87) 94 99.4 06/07/24 08:00 Room Air* 0 21 Total Intake and Output 06/06/24 06/06/24 06/07/24 15:00 23:00 07:00 Intake Total 100 ml 300 ml 300 ml Balance 100 ml 300 ml 300 ml medications Current Medications Medications Dose Ordered Sig/[place] Route Start Time Stop Time Status Last Admin Dose Admin Ondansetron HCl 4 mg Q4HP PRN IV 06/05/24 19:45 Morphine Sulfate 2 mg Q4HPRN PRN IV 06/05/24 19:45 06/06/24 21:30 2 MG Potassium Chloride/Dextrose/ Sod Cl 1,000 ml @ 120 mls/hr Q8H20M IV 06/06/24 12:00 06/06/24 17:57 120 MLS/HR Piperacillin Sod/ Tazobactam Sod 100 ml @ 25 mls/hr Q6H IV 06/06/24 21:00 06/07/24 10:05 25 MLS/HR Acetaminophen 650 mg Q6HP PRN PO 06/07/24 02:15 Examination: GENERAL:Normal, HEENT:Normal, NECK:Normal, LUNGS:Normal, CVS:Normal, ABDOMEN:Normal, MSK:Normal, SKIN:Normal laboratory and microbiology Laboratory Tests 06/06/24 07:51 Test 06/06/24 07:51 Range/Units Serum Glucose 146 H 74-106 mg/dL Problem List/Assessment/Plan Problem List/Assessment/Plan 06/07/24 no new complaints, abdomen soft, non distended, appropriately tender, tolerating diet, passing gas, wounds clean dry and intact, full liquid diet continue IV antibiotics Plan discussed with: Patient, Other ([employer] ) JUSTIN BHATIA NP Jun 07, 2024 14:32
[2024-06-08] VITALS (8 sets, daily range): BP systolic 107–128; BP diastolic 57–79; PULSE 76–93; RESP 17–18; TEMP 97.4–99; O2SAT 91–98
[2024-06-08 09:46] LABS: Basophils # (auto) 0 10 ^3/uL (0-0.2); Basophils % (auto) 0.5 % (0.0-2.0); Eosinophils # (auto) 0.2 10 ^3/uL (0-0.8); Eosinophils % (auto) 1.9 % (0.0-7.0); Hematocrit 34.3 % (41.0-53.0); Hemoglobin 11.6 g/dL (13.5-17.5); Lymphocytes # (auto) 1.5 10 ^3/uL (0.4-5.4); Mean Corpuscular Hemoglobin 31.2 pg (28.0-32.0); Mean Corpuscular Hgb Conc. 33.8 g/dL (32.0-36.0); Mean Corpuscular Volume 92.1 fL (80.0-100.0); Monocytes # (auto) 0.8 10 ^3/uL (0-1.3); Monocytes % (auto) 7.5 % (0.0-12.0); Neutrophils # (auto) 7.8 10 ^3/uL (1.6-8.6); Neutrophils % (auto) 75.1 % (37.0-80.0); Platelet Count (auto) 161 10^3/uL (140-450); Red Blood Cells 3.72 10^6/uL (4.5-5.90); Red Cell Distribution Width 12.4 % (11.8-14.3); White Blood Cell 10.3 10^3/uL (4.4-10.8)
[2024-06-08 10:06] LABS: Alanine Aminotransferase 18 U/L (7-40); Albumin 4.1 g/dL (3.2-4.8); Alkaline Phosphatase 54 U/L (46-116); Anion Gap 8 (5-15); Aspartate Aminotransferase 19 U/L (13-40); BUN/Creatinine Ratio 11.1 (10.0-20.0); Bilirubin, Total 0.7 mg/dL (0.2-1.0); Blood Urea Nitrogen 9 mg/dL (9-23); Carbon Dioxide 27 mmol/L (20-31); Chloride 103 mmol/L (98-107); Sodium 138 mmol/L (136-145); Total Protein 6.6 g/dL (5.7-8.2)
[2024-06-08 10:28] LABS: Glucose 199 mg/dL (74-106); Potassium 3.2 mmol/L (3.5-5.1)
--- NOTE | 2024-06-08 12:00 | DVHPN2 ---
Reviewed: Care Plan, H&P, Labs, Medications, Previous Orders, Radiology Changes from previous H/P or p: No Changes Objective Vitals Vital Signs Date Time Temp Pulse Resp B/P (MAP) Pulse Ox O2 Delivery O2 Flow Rate FiO2 06/08/24 08:55 98.8 83 18 115/79 (91) 91 98.8 06/08/24 08:00 Room Air* 0 21 Intake/Output Intake and Output 06/08/24 07:00 Intake Total 2400 ml Output Total 0 ml Balance 2400 ml Intake Oral 1100 ml IV Total 1300 ml Tube Feeding 0 ml Output Stool Total 0 ml # Voids 5 # Bowel Movements 1 Medications Current Medications Medications Dose Ordered Sig/[place] Route Start Time Stop Time Status Last Admin Dose Admin Ondansetron HCl 4 mg Q4HP PRN IV 06/05/24 19:45 Morphine Sulfate 2 mg Q4HPRN PRN IV 06/05/24 19:45 06/06/24 21:30 2 MG Potassium Chloride/Dextrose/ Sod Cl 1,000 ml @ 120 mls/hr Q8H20M IV 06/06/24 12:00 06/06/24 17:57 120 MLS/HR Piperacillin Sod/ Tazobactam Sod 100 ml @ 25 mls/hr Q6H IV 06/06/24 21:00 06/08/24 09:42 25 MLS/HR Acetaminophen 650 mg Q6HP PRN PO 06/07/24 02:15 Laboratory Results Laboratory Tests 06/08/24 09:31 Chemistry Test 06/08/24 09:31 Albumin 4.1 g/dL (3.2-4.8) Calcium Level 9.0 mg/dL (8.7-10.4) Total Protein 6.6 g/dL (5.7-8.2) LFT Test 06/08/24 09:31 Alanine Aminotransferase (ALT) 18 U/L (7-40) Alkaline Phosphatase 54 U/L (46-116) Aspartate Amino Transferase (AST) 19 U/L (13-40) Total Bilirubin 0.7 mg/dL (0.2-1.0) Urinalysis Test 06/05/24 17:35 Urine Color Yellow (Yellow) Urine Clarity Clear (Clear) Urine pH 5.5 (5.0-9.0) Urine Specific [place] 1.031 (1.001-1.035) Urine Protein 1+ (Negative) H Urine Ketones 1+ (Negative) H Urine Blood Negative /uL (Negative) Urine Nitrite Negative (Negative) Urine Bilirubin Negative (Negative) Urine Urobilinogen Normal mg/dL (Negative) Urine Leukocyte Esterase Negative /uL (Negative) Urine RBC <1 /hpf (0 - 3) Urine Microscopic WBC < 1 /HPF (0-3) Urine Squamous Epithelial Cells None seen /hpf (<5) Urine Bacteria None seen /hpf (None Seen) Urine Mucus Few (None Seen) Urine Glucose 3+ mg/dL (Normal) H Microbiology Microbiology Date/Time Source Procedure Growth Status 06/06/24 11:50 Peritoneal Fluid Gram Stain - Final Resulted 06/06/24 11:50 Peritoneal Fluid Anaerobic Culture - Preliminary Resulted 06/06/24 11:50 Peritoneal Fluid Aerobic Culture - Preliminary Resulted Labs and/or images reviewed: Labs reviewed by me, Image(s) reviewed by me Assessment/Plan Assessment/Plan Acute appendicitis status post laparoscopic appendectomy by Dr. Patrick on 06/06/2024 continue Zosyn Hypertension Diabetes Examined through the help of [employer] Peritoneal Fluid cultures pending Advance diet as tolerated Plan discussed with: Patient Date of Service: Jun 08, 2024 Billing Provider: SPRING MIGUEL MD Common Visit Codes: [id number] INP/OBS CARE(HIGH) SPRING MIGUEL MD Jun 08, 2024 12:00
--- NOTE | 2024-06-08 12:03 | DVHPN2 ---
Progress Note Date Seen: Jun 08, 2024 Has the PT tested + for MRSA If YES, has PT been informed?: No Medical Necessity Reason Pt with a Central, PICC or Fol: No Subjective Patient reports: No new complaints, Feels better Review of Systems: HEENT:Normal, CVS:Normal, RESPIRATORY:Normal, GI:Normal, :Normal, MSK:Normal, NEURO:Normal Objective vital signs Vital Sign Date Time Temp Pulse Resp B/P (MAP) Pulse Ox O2 Delivery O2 Flow Rate FiO2 06/08/24 08:55 98.8 83 18 115/79 (91) 91 98.8 06/08/24 08:00 Room Air* 0 21 Total Intake and Output 06/07/24 06/07/24 06/08/24 15:00 23:00 07:00 Intake Total 200 ml 1800 ml 400 ml Output Total 0 ml Balance 200 ml 1800 ml 400 ml medications Current Medications Medications Dose Ordered Sig/[place] Route Start Time Stop Time Status Last Admin Dose Admin Ondansetron HCl 4 mg Q4HP PRN IV 06/05/24 19:45 Morphine Sulfate 2 mg Q4HPRN PRN IV 06/05/24 19:45 06/06/24 21:30 2 MG Potassium Chloride/Dextrose/ Sod Cl 1,000 ml @ 120 mls/hr Q8H20M IV 06/06/24 12:00 06/06/24 17:57 120 MLS/HR Piperacillin Sod/ Tazobactam Sod 100 ml @ 25 mls/hr Q6H IV 06/06/24 21:00 06/08/24 09:42 25 MLS/HR Acetaminophen 650 mg Q6HP PRN PO 06/07/24 02:15 Examination: GENERAL:Normal, HEENT:Normal, NECK:Normal, LUNGS:Normal laboratory and microbiology Laboratory Tests 06/08/24 09:31 Test 06/08/24 09:31 Range/Units Serum Glucose 199 H 74-106 mg/dL Problem List/Assessment/Plan Problem List/Assessment/Plan 06/07/24 no new complaints, abdomen soft, non distended, appropriately tender, tolerating diet, passing gas, wounds clean dry and intact, full liquid diet continue IV antibiotics 06/08/24 notes, labs reviewed no new complaints, denies nausea and vomiting, passing gas and had BM, abdomen soft, non distended , appropriately tender, wounds clean dry and intact advance diet as tolerated, ok to discharge per surgery point of view , patient to follow up in clinic in 10-14 days send home with antibiotics Plan discussed with: Patient, Other (Dr. brown) JUSTIN BHATIA NP Jun 08, 2024 12:03
[2024-06-09 01:00] VITALS: BP 138/75; PULSE 86; RESP 18; TEMP 98.1; O2SAT 98
[2024-06-09 05:00] VITALS: BP 111/73; PULSE 85; RESP 15; TEMP 98.2; O2SAT 95
[2024-06-09 08:00] VITALS: RESP 18; O2SAT 98
[2024-06-09 09:00] VITALS: BP 116/80; PULSE 72; RESP 18; TEMP 97.5; O2SAT 97
[2024-06-09] MEDS ORDERED: POTASSIUM CHL 20MEQ/100ML 100 ML IV ONE (09:00)
--- NOTE | 2024-06-09 09:00 | DVHPN2 ---
Progress Note - Surgical Date Seen: Jun 09, 2024 Post op day Post op day: 3 Subjective Patient reports: No new complaints, Feels better Review of Systems: HEENT:Normal, CVS:Normal, RESPIRATORY:Normal, GI:Normal, :Normal, MSK:Normal, NEURO:Normal Objective Vital signs Vital Sign Date Time Temp Pulse Resp B/P (MAP) Pulse Ox O2 Delivery O2 Flow Rate FiO2 06/09/24 05:00 98.2 85 15 111/73 (86) 95 98.2 06/08/24 20:00 Room Air* 0 21 Total Intake and Output 06/08/24 06/08/24 06/09/24 15:00 23:00 07:00 Intake Total 540 ml 700 ml Output Total 700 ml Balance 540 ml 0 ml Medications Current Medications Medications Dose Ordered Sig/[place] Route Start Time Stop Time Status Last Admin Dose Admin Ondansetron HCl 4 mg Q4HP PRN IV 06/05/24 19:45 Morphine Sulfate 2 mg Q4HPRN PRN IV 06/05/24 19:45 06/06/24 21:30 2 MG Piperacillin Sod/ Tazobactam Sod 100 ml @ 25 mls/hr Q6H IV 06/06/24 21:00 06/09/24 04:45 25 MLS/HR Acetaminophen 650 mg Q6HP PRN PO 06/07/24 02:15 Laboratory Laboratory Tests 06/08/24 09:31 Test 06/08/24 09:31 Range/Units Serum Glucose 199 H 74-106 mg/dL Microbiology Date/Time Source Procedure Growth Status 06/06/24 11:50 Peritoneal Fluid Gram Stain - Final Resulted 06/06/24 11:50 Peritoneal Fluid Anaerobic Culture - Preliminary Resulted 06/06/24 11:50 Peritoneal Fluid Aerobic Culture - Preliminary Resulted Examination: GENERAL:Normal, HEENT:Normal, NECK:Normal, LUNGS:Normal, CVS:Normal, ABDOMEN:Normal, MSK:Normal, SKIN:Normal, NEURO:Normal Problem List/Assessment/Plan Assessment and Plan no new complaints, labs and notes reviewed patient asked if he could go home today potassium low , Krider on order abdomen soft, non distended, appropriately tender PLAN: ok to discharge per surgery point of view once potassium level normal send home with antibiotics patient to follow up in clinic in two weeks Dr. Patrick agrees with plan My Orders My Orders Orders - JUSTIN BHATIA NP Procedure Category Date Status Time Potassium Chl PHA 06/09/24 Logged 20meq/100ml 09:00 Plan discussed with Plan discussed with: Patient, Other Visit Coding Surgery Date of Service if different f: Jun 09, 2024 Billing Provider: NIRU PATRICK MD Surgery Visit Codes: [id number] INP/OBS CARE(HIGH) JUSTIN BHATIA NP Jun 09, 2024 09:00
[2024-06-09] MEDS ORDERED: LEVO500T91 PO (10:49)
[2024-06-09] MEDS ORDERED: METR-344 PO (10:49)
[2024-06-09] MEDS ORDERED: HYDR-4902 PO (10:49)
--- NOTE | 2024-06-09 10:56 | DVHDS2 ---
Discharge Summary Date of Admission Jun 05, 2024 at 19:45 Date of Discharge: Jun 09, 2024 Admitting Diagnosis Right lower quadrant abdominal pain Wounds: Laparoscopic appendectomy Labs/Diagnostic Data: Laboratory Results Test 06/08/24 09:31 06/05/24 17:53 06/05/24 17:35 White Blood Count 10.3 10^3/uL (4.4-10.8) Red Blood Count 3.72 10^6/uL (4.5-5.90) Hemoglobin 11.6 g/dL (13.5-17.5) Hematocrit 34.3 % (41.0-53.0) Mean Corpuscular Volume 92.1 fL (80.0-100.0) Mean Corpuscular Hemoglobin 31.2 pg (28.0-32.0) Mean Corpuscular Hemoglobin Concent 33.8 g/dL (32.0-36.0) Red Cell Distribution Width 12.4 % (11.8-14.3) Platelet Count 161 10^3/uL (140-450) Mean Platelet Volume 8.7 fL (6.9-10.8) Neutrophils (%) (Auto) 75.1 % (37.0-80.0) Lymphocytes (%) (Auto) 15.0 % (10.0-50.0) Monocytes (%) (Auto) 7.5 % (0.0-12.0) Eosinophils (%) (Auto) 1.9 % (0.0-7.0) Basophils (%) (Auto) 0.5 % (0.0-2.0) Neutrophils # (Auto) 7.8 10 ^3/uL (1.6-8.6) Lymphocytes # (Auto) 1.5 10 ^3/uL (0.4-5.4) Monocytes # (Auto) 0.8 10 ^3/uL (0-1.3) Eosinophils # (Auto) 0.2 10 ^3/uL (0-0.8) Basophils # (Auto) 0 10 ^3/uL (0-0.2) Nucleated Red Blood Cells 0.0 % Sodium Level 138 mmol/L (136-145) Potassium Level 3.2 mmol/L (3.5-5.1) Chloride Level 103 mmol/L (98-107) Carbon Dioxide Level 27 mmol/L (20-31) Anion Gap 8 (5-15) Blood Urea Nitrogen 9 mg/dL (9-23) Creatinine 0.81 mg/dL (0.700-1.30) Glomerular Filtration Rate Calc 106 mL/min (>90) BUN/Creatinine Ratio 11.1 (10.0-20.0) Serum Glucose 199 mg/dL (74-106) Calcium Level 9.0 mg/dL (8.7-10.4) Total Bilirubin 0.7 mg/dL (0.2-1.0) Aspartate Amino Transferase (AST) 19 U/L (13-40) Alanine Aminotransferase (ALT) 18 U/L (7-40) Alkaline Phosphatase 54 U/L (46-116) Total Protein 6.6 g/dL (5.7-8.2) Albumin 4.1 g/dL (3.2-4.8) Prothrombin Time 11.0 sec (9.3-11.8) Prothrombin Time INR 1.04 (0.9-1.15) Activated Partial Thromboplast Time 27.3 SEC (24.5-34.5) Lipase 51 U/L (12-53) Urine Color Yellow (Yellow) Urine Clarity Clear (Clear) Urine pH 5.5 (5.0-9.0) Urine Specific [place] 1.031 (1.001-1.035) Urine Protein 1+ (Negative) Urine Ketones 1+ (Negative) Urine Blood Negative /uL (Negative) Urine Nitrite Negative (Negative) Urine Bilirubin Negative (Negative) Urine Urobilinogen Normal mg/dL (Negative) Urine Leukocyte Esterase Negative /uL (Negative) Urine RBC <1 /hpf (0 - 3) Urine Microscopic WBC < 1 /HPF (0-3) Urine Squamous Epithelial Cells None seen /hpf (<5) Urine Bacteria None seen /hpf (None Seen) Urine Mucus Few (None Seen) Urine Glucose 3+ mg/dL (Normal) Other Laboratory Tests 06/08/24 09:31 Brief Hx & Hospital Course: 53-year-old male came in for right lower quadrant abdominal pain. Found to have acute appendicitis underwent laparoscopic appendectomy by Dr. Patrick. Treated with IV fluids IV antibiotics pain medications. Postop course uneventful. Diet was gradually advanced. At the time of discharge afebrile stable vital signs eating soft diet. Cleared for discharge by surgeon. Prescription for Levaquin Flagyl [place] transmitted to pharmacy. Discharge plan explained to the patient with the help of his friend who is also [employer] filter pulp washer at the bedside. Consults/Reason for consult Surgeon Dr. Patrick Operations or Procedures Laparoscopic appendectomy Condition at Discharge: Fair Final Diagnosis/Problems List Acute appendicitis status post laparoscopic appendectomy by Dr. Patrick on 06/06/2024 continue [place] Hypertension Diabetes Examined through the help of [employer] filter pulp washer Discharge Disposition: Home Discharge Instruct/Medications Diet: Regular Activity: Light activity Follow Up/Referral: Follow up with surgeon Dr. Patrick in 10 days Use medications as prescribed Medications: Levaquin Flagyl [place] Transmitted to [facility] [id number] [place] [address] [address] (Time taken for discharge summary 35 minutes) Discharge Statement: "Patient was advised to return to the ER or call 911 if any headaches, dizziness, shortness of breath, chest pain, abdominal pain, bleeding, fevers, or worsening of medical condition. Patient was counseled about treatment plan, medications, possible side effects, patientverbalized understanding. All questions were answered to the best of my ability. This discharge took greater then 30 minutes in planning, reviewing documentation, counseling the patient, and discussing with other team members." ASSESSMENT ASSESSMENT Hospital Course Improved Assessment Acute appendicitis status post laparoscopic appendectomy by Dr. Patrick on 06/06/2024 continue [place] Hypertension Diabetes Examined through the help of [employer] filter pulp washer Date of Service: Jun 09, 2024 Billing Provider: SPRING MIGUEL MD Common Visit Codes: 06430-BEB/OBS DISCH DAY >30min SPRING MIGUEL MD Jun 09, 2024 10:56
[2024-06-09] MEDS ORDERED: PIPERACILLIN-TAZOB 3.375GM 100 ML IV SCH (14:00)
== END 2024-06-09 12:30 | disposition home or self-care (01) | DRG 399 ==
LOC: ER 16:50 → OVERFLOW 19:45 → WEST WING 23:35
PROVIDERS: ADMIT Nurse Practitioner; ATTEND Family Medicine
PROC: 0DTJ4ZZ Resection of Appendix, Percutaneous Endoscopic Approach (ICD-10-PCS; principal; 2024-06-06 11:06)
DX: K37 Unspecified appendicitis (principal); E11.9 Type 2 diabetes mellitus without complications; D72.829 Elevated white blood cell count, unspecified; I10 Essential (primary) hypertension; Z79.899 Other long term (current) drug therapy; Z79.4 Long term (current) use of insulin
CPT/HCPCS: 36415; 71045; 74176; 80053; 81001; 83690; 85025; 85610; 85730; 86850; 86900; 86901; 87070; 87075; 87077; 87186; 87205; 96360; G0378; J2250; J2405; J2543; J3490